=== PATIENT | female | born 1965 | race Hispanic/Latino ===

== ENCOUNTER 2017-06-13 20:29 | Emergency (ER) | payer BC, OTHER ==
[~2017-06-13 20:29] MED LIST: RANI300T4 PO
[2017-06-13] MEDS ORDERED: KETOROLAC TROMETHAMINE 30MG/ML ONE (22:16)
== END 2017-06-13 22:39 | disposition home or self-care (01) ==
LOC: EDH 20:29
DX: M54.5 Low back pain (principal); R51 Headache; E78.5 Hyperlipidemia, unspecified; Z90.710 Acquired absence of both cervix and uterus; W18.39XA Other fall on same level, initial encounter; Y93.89 Activity, other specified; Y92.89 Other specified places as the place of occurrence of the external cause; Y99.8 Other external cause status
CPT/HCPCS: 70450; 72220; 96372; 99284; J1885

== ENCOUNTER 2021-07-15 13:23 | Emergency (ER) | payer BC ==
[~2021-07-15] VITALS: Ht 154.9 cm; Wt 74.8 kg
[2021-07-15] MEDS ORDERED: KETOROLAC 60 MG VIAL (30MG/ML) IM ONE (16:30)
[2021-07-15] MEDS ORDERED: CYCLOBENZAPRINE HCL 10 MG TABLET PO ONE (16:30)
[2021-07-15] MEDS ORDERED: NAPR-1180 PO (17:21)
[2021-07-15] MEDS ORDERED: CYCL10TA16 PO (17:21)
[2021-07-15 17:36] VITALS: BP 144/88
== END 2021-07-15 17:37 | disposition home or self-care (01) ==
LOC: EDH 13:23
DX: S16.1XXA Strain of muscle, fascia and tendon at neck level, initial encounter (principal); S39.012A Strain of muscle, fascia and tendon of lower back, initial encounter; S09.90XA Unspecified injury of head, initial encounter; Z79.899 Other long term (current) drug therapy; W07.XXXA Fall from chair, initial encounter; Y93.89 Activity, other specified; Y92.89 Other specified places as the place of occurrence of the external cause; Y99.8 Other external cause status
CPT/HCPCS: 70450; 72125; 72131; J1885

== ENCOUNTER 2022-04-12 11:41 | Emergency (ER) | payer BC ==
[~2022-04-12] VITALS: Ht 154.9 cm; Wt 76.7 kg
[~2022-04-12 11:41] MED LIST changes: +CYCL10TA16 PO; +NAPR-1180 PO
[2022-04-12 12:11] LABS: BASOPHILS % (AUTO) 0.8 % (0.0-5.0); EOSINOPHILS % (AUTO) 2.9 % (0.0-8.0); HEMATOCRIT 38.3 % (36-48); LYMPHOCYTES % (AUTO) 37.9 % (21.0-51.0); MEAN CORPUSCULAR HEMOGLOBIN 30.2 pg (27.0-33.0); MEAN CORPUSCULAR HGB CONC 34.5 g/dL (32.0-36.0); MEAN CORPUSCULAR VOLUME 87.6 fL (79-99); MONOCYTES % (AUTO) 8.6 % (3.0-13.0); NEUTROPHILS % (AUTO) 49.1 % (40.0-77.0); PLATELET COUNT (AUTO) 147 K/uL (130-400); RED BLOOD CELL COUNT(AUTO) 4.37 MIL/uL (4.00-5.50); RED CELL DISTRIBUTION WIDTH 12.5 % (11.0-15.5); WHITE BLOOD COUNT (AUTO) 7.6 K/uL (4.8-10.8)
[2022-04-12 12:33] LABS: CREATININE 0.8 mg/dL (0.5-1.5); POTASSIUM 4.3 mmol/L (3.5-5.1)
[2022-04-12 12:37] LABS: ALBUMIN 4.2 g/dL (3.5-5.0); TOTAL PROTEIN, SERUM 7.3 g/dL (6.0-8.3)
[2022-04-12 12:40] LABS: APPEARANCE,URINE CLEAR (CLEAR); BILIRUBIN,URINE NEGATIVE (NEGATIVE); COLOR,URINE LIGHT-YELLOW (YELLOW); GLUCOSE, URINE (UA) NEGATIVE (NEGATIVE); KETONES,URINE NEGATIVE (NEGATIVE); LEUKOCYTE ESTERASE ,URINE NEGATIVE Leu/uL (NEGATIVE); NITRATE,URINE NEGATIVE (NEGATIVE); OCCULT BLOOD,URINE NEGATIVE (NEGATIVE); PROTEIN,URINE NEGATIVE (NEGATIVE); UROBILINOGEN,URINE 0.2 mg/dL (0.2-1.0)
[2022-04-12 15:24] VITALS: BP 116/45
== END 2022-04-12 15:24 | disposition home or self-care (01) ==
LOC: EDH 11:41
DX: R07.89 Other chest pain (principal); K21.9 Gastro-esophageal reflux disease without esophagitis; E78.00 Pure hypercholesterolemia, unspecified; E66.9 Obesity, unspecified; Z79.1 Long term (current) use of non-steroidal anti-inflammatories (NSAID); Z90.710 Acquired absence of both cervix and uterus; Z68.31 Body mass index [BMI] 31.0-31.9, adult
CPT/HCPCS: 36415; 71045; 80053; 81003; 84484; 85025; 93005

== ENCOUNTER → 2023-12-28 | Outpatient (CLI) | payer OTHER ==
[~2023-12-28] MED LIST changes: -CYCL10TA16 PO; +LEVO750T68 PO; -NAPR-1180 PO; -RANI300T4 PO
--- NOTE | 2023-12-28 15:47 | HMCIMG ---
CT CORONARY CALCIFICATION SCORING: Anatomic images were reviewed. The calcium score is being generated and reported separately. This report is for the visualized anatomy only. Visualized portions of the lungs are clear. Hilar and mediastinal structures appear normal. Osseous structures are unremarkable. Impression: 1. Negative noncardiac anatomic findings. 2. The calcium score is 1676.6 consistent with a large degree of calcified plaque. This is greater than 99th percentile for a patient this age. CT was performed with one or more following dose reduction techniques: automated exposure control, adjustment of the mA and kv according to patient's size, or use of a iterative reconstruction technique.
== END | disposition home or self-care (01) ==
LOC: RAH 14:35
PROVIDERS: ATTEND Internal Medicine Cardiovascular Disease
DX: Z13.6 Encounter for screening for cardiovascular disorders (principal); R06.09 Other forms of dyspnea; I20.9 Angina pectoris, unspecified; R93.1 Abnormal findings on diagnostic imaging of heart and coronary circulation
CPT/HCPCS: 75571

== ENCOUNTER → 2024-01-09 | Outpatient (CLI) | payer BC | END | disposition home or self-care (01) | LOC: SHCH 14:15 | PROVIDERS: ATTEND Internal Medicine Cardiovascular Disease | DX: R06.9 Unspecified abnormalities of breathing (principal); I20.9 Angina pectoris, unspecified | CPT/HCPCS: 93306; 93356 ==

== ENCOUNTER → 2024-03-20 | Outpatient (CLI) | payer BC ==
[~2024-03-20] MED LIST changes: +ASPI-1197 PO; +ATOR20TA65 PO; +FENO160T16 PO; +GABA-529 PO; -LEVO750T68 PO; +LINA72CA PO; +METO-408 PO; +OMEP40CA21 PO; +RANO500T6 PO
--- NOTE | 2024-03-20 15:42 | HMCIMG ---
Exam Type: CT HEAD/BRAIN W/O CONTRAST Clinical Information: Headache, Cerebrovascular disease, unspecified. Comparison: None CT Dose Index (CTDI): 57.33 mGy Dose Length Product (DLP): 956.79 total mGy-cm Findings: The examination is unremarkable. Hilliard-white matter junction is preserved. No intra or extra axial lesions or fluid collections are seen. Specifically, hilliard and white matter are normal in signal characteristics with normal caliber of ventricles and periventricular cisterns with no evidence of intra or or extra-axial hemorrhage, lacunar infarct, or major territorial infarct, mass, or other abnormality. There are no infarcts. There are no hemorrhages. Periventricular white matter locations are preserved. The orbital contents and structures of the posterior fossa are intact. Impression: Normal CT of the head. This study was performed using dose reduction techniques to include automated exposure control and/or adjustment of the mA and/or kV according to patient size.
== END | disposition home or self-care (01) ==
LOC: RAH 14:36
PROVIDERS: ATTEND Internal Medicine Cardiovascular Disease
DX: I67.9 Cerebrovascular disease, unspecified (principal); R51.9 Headache, unspecified
CPT/HCPCS: 70450

== ENCOUNTER → 2024-03-28 | Outpatient (CLI) | payer BC ==
[~2024-03-28] MED LIST changes: +PERFLUTREN PROTEIN-A MICROSPHR 0.22 MG/ML VIAL IV ONE
--- NOTE | 2024-03-31 13:11 | HMCSR ---
APPROVED REPORT EXAM: Two-dimensional and M-mode echocardiogram with Doppler and color Doppler. INDICATION ICD: I51.3 Contrast Details Indication: Rule out thrombus Agent/Amount Used: Optison 2mL 2D Dimensions RVDd3.1 cmLVEF(%)78.1 (>50%)LVED Vol(simp.)70.5 mL IVSd1.0 (0.7-1.1cm)FS(%)46 %LVES Vol(simp.)21.7 mL LVDd3.7 (3.8-5.6cm)LA (2D)2.8 (1.6-4.0cm)LVEF(%, simp.)69 % PWd1.4 (0.7-1.1cm)Ao Root(2D)2.4 (2.0-3.7cm)LA ESV INDEX (4CH)17.80 mL/m2 IVSs1.5 cmLVOT diam1.8 (1.8-2.4cm)LA ESV INDEX (2CH)23.70 mL/m2 LVDs2.0 (2.5-4.0cm)LA ESV INDEX (BP)18.70 mL/m2 PWs1.7 cm M-Mode Dimensions EPSS0.4 cm LA (MM)3.3 (1.6-4.0cm) Ao Root(MM)2.6 (2.0-3.7cm) Aortic Valve AoV VTI0.3 mAo Mean GR5.0 mmHgLVOT VTI0.22 m SHANT (VMAX)1.8 cm2AVA (VTI) 1.8 cm2 Mitral Valve MV E Vmax58.7 cm/sDECEL Wwxo518 ms MV A Vmax66.5 cm/sP 1/2 T119 ms E/A ratio0.9MVA (PHT)1.9 cm2 TDI E/E' Tufgze75.3E/E' Lateral7.2 Medial E' Peak V3.20 cm/sLateral E' Peak V8.20 cm/s Tricuspid Valve TR Vmax2.1 m/s TR Peak GR16.8 mmHg Left Ventricle Left ventricular cavity size is normal. Mid and distal anteroseptal dyskinesis Moderate hypokinesis o f mid and distal anterior wall and anterior apex There is normal left ventricular wall thickness. LVE F is 45%. Apical echodensity noted with Optison on injection at apex however significantly reduced in size compared to study dated February 13, 2024 Indeterminate diastolic dysfunction. Right Ventricle The right ventricle is normal size. The right ventricular systolic function is normal. Atria The left atrium size is normal. The right atrium size is normal. Aortic Valve The aortic valve is normal in structure and function. No aortic regurgitation is present. There is no aortic valvular stenosis. Mitral Valve The mitral valve is normal in structure and function. There is no mitral valve regurgitation noted. T here is no mitral valve stenosis. Tricuspid Valve The tricuspid valve is normal in structure and function. There is trivial tricuspid valve regurgitati on noted. Pulmonic Valve Pulmonic valve is not well visualized. There is no pulmonic valvular regurgitation. Great Vessels The aortic root is normal in size. The IVC is normal in size and collapses >50% with inspiration. Pericardium No pericardial effusion. Conclusion Mid and distal anteroseptal dyskinesis Moderate hypokinesis of mid and distal anterior wall and anterior apex Apical echodensity noted with Optison on injection at apex however significantly reduced in size comp ared to study dated February 13, 2024 LVEF is 45%.
== END | disposition home or self-care (01) ==
LOC: RAH 14:07
PROVIDERS: ATTEND Internal Medicine Cardiovascular Disease
DX: I07.1 Rheumatic tricuspid insufficiency (principal)
CPT/HCPCS: C8929; Q9956

== ENCOUNTER 2024-09-26 08:42 | Day surgery (SDC) | payer BC ==
[2024-09-26] VITALS (21 sets, daily range): BP systolic 104–142; BP diastolic 47–76; PULSE 42–72; RESP 12–18; TEMP 97.5–97.9
[~2024-09-26] VITALS: Ht 154.9 cm; Wt 68.3 kg
[~2024-09-26 08:42] MED LIST changes: +CYAN-52 PO; +DICY20TA3 PO; +EZET10TA48 PO; +FOLI1 PO; -GABA-529 PO; +HYDR28.32 TP; +ISOS30TA92 PO; +LOSA-417 PO; -METO-408 PO; -PERFLUTREN PROTEIN-A MICROSPHR 0.22 MG/ML VIAL IV ONE; -RANO500T6 PO; +RIVA20TA PO
[2024-09-26] MEDS ORDERED: LIDOCAINE HCL 400MG/20ML VIAL ONE (12:18)
[2024-09-26] MEDS ORDERED: IOHEXOL 350 MG/ML 100ML INFUS..BTL IV ONE (12:18)
[2024-09-26] MEDS ORDERED: NITROGLYCERIN 50MG VIAL ONE (12:19)
[2024-09-26] MEDS ORDERED: BIVALIRUDIN 250 MG/VIAL IV ONE (12:21)
[2024-09-26] MEDS ORDERED: MIDAZOLAM HCL 1 MG/ML 2ML VIAL ONE ×2 (12:46→12:49)
[2024-09-26] MEDS ORDERED: 0.9%NACL 1000ML 1,000 ML IV SCH (14:00)
[2024-09-26] MEDS ORDERED: GLUCAGON 1MG KIT 1 MG ML IM PRN (14:00)
[2024-09-26] MEDS ORDERED: DEXTROSE 50%-WATER 50 ML DISP.SYRIN IV PRN (14:00)
--- NOTE | 2024-09-26 14:08 | PRN ---
Procedure Note INDICATION FOR PROCEDURE: [] Chest pain Abnormal coronary CT angiogram PROCEDURE: [] Conscious sedation Selective coronary angiography Right common femoral arterial sheath placement six Filipino Omni wire pressure motion of ostial and proximal RCA lesions Intravascular ultrasound of RCA, lad, left main artery DATE OF PROCEDURE: September 26, 2024 PET CARE ASSOCIATE: Wilfredo Camarillo MD, F.A.C.C. PROCEDURE NOTE: [] Patient was brought to catheterization suite and prepped and draped in sterile fashion. An IV was started if not already in place in both groins were exposed from arterial access. 2% lidocaine was used for local anesthesia and then a micropuncture kit was used to gain access and once verified by dressing modified Seldinger technique was utilized to place a six Filipino sheath into the right common femoral artery. Next a six Filipino JR4 guide catheter with side holes then cannulated the right coronary artery and then a choice PT extra-support wire was placed in the distal ongoing RPL. Next intravascular ultrasound evaluation was performed of the proximal ostial RCA revealing only areas of stenosis at most albeit calcified of approximately 40-50%. Omni wire pressure measurement was also performed at 0.97 and 0.98. Guide catheter and wire were removed. Next a 3.0 XB catheter was then placed in the left coronary system and a choice PT extra-support wire was then placed into the mid LAD with contrast injections revealing occluded mid LAD with wire going up into what presumably was a NOGUERA anastomosis we could not get past the lesion. Next intravascular ultrasound was done of the proximal LAD and ostial proximal mid and distal left main. There was multiple measurements obtained revealing mean luminal area of greater than 6.5 millimeter squared in the left main artery and 7.9 millimeter squared. Once again it was noted that mid LAD was occluded. It was felt she would be terminated IMPRESSION: [] Occluded mid LAD Occluded graft x3 Moderate stenosis of left main artery and ostial proximal RCA PLAN: [] Aggressive medical management WILFREDO CAMARILLO MD Sep 26, 2024 14:08
[2024-09-26] MEDS ORDERED: ATROPINE 1MG SYG IVP ONE (15:35)
--- NOTE | 2024-09-26 15:38 | NUR ---
SHEATH PULLED AT THIS TIME VSS NAD RIGHT GROIN ASYMPTOMATIC
--- NOTE | 2024-09-26 15:53 | NUR ---
D-SAT WAS APPLIED TO RIGHT GROIN SITE MANUAL PRESSURE HELD X 15 MINUTES NAD VSS RIGHT FEMORAL SITE ASYMPTOMATIC.
--- NOTE | 2024-09-26 17:55 | NUR ---
BOTH PT AND SPOUSE GIVEN VERBAL AND WRITTEN DISCHARGE INSTRUCTIONS. IV REMOVED SITE ASYMPTOMATIC. RIGHT FEMORAL SITE ASYMPTOMATIC. DRESSING DRY INTACT. PT ASSESSED RIGHT GROIN PRIOR TO DISCHARGE WITH MYSELF. PT TAKEN OUT VIA WHEELCHAIR. SPOUSE DRIVING
== END 2024-09-26 18:05 | disposition home or self-care (01) ==
LOC: DAH 08:42
PROVIDERS: ATTEND Internal Medicine Cardiovascular Disease
DX: I25.119 Atherosclerotic heart disease of native coronary artery with unspecified angina pectoris (principal); D50.0 Iron deficiency anemia secondary to blood loss (chronic); I87.2 Venous insufficiency (chronic) (peripheral); E11.51 Type 2 diabetes mellitus with diabetic peripheral angiopathy without gangrene; R93.1 Abnormal findings on diagnostic imaging of heart and coronary circulation; I51.3 Intracardiac thrombosis, not elsewhere classified; E78.2 Mixed hyperlipidemia; E66.9 Obesity, unspecified; Z90.710 Acquired absence of both cervix and uterus; Z95.1 Presence of aortocoronary bypass graft; Z90.5 Acquired absence of kidney; Z90.722 Acquired absence of ovaries, bilateral; Z88.8 Allergy status to other drugs, medicaments and biological substances; Z68.30 Body mass index [BMI] 30.0-30.9, adult; Z79.01 Long term (current) use of anticoagulants; Z79.82 Long term (current) use of aspirin; Z79.899 Other long term (current) drug therapy
CPT/HCPCS: 93454; 92978; 92979 ×2; 93571; 87426; 99156; 99157 ×3; C1769 ×2; C1887 ×2; C1894 ×2; C1753; J3010; J3490 ×2; J2250 ×2; J0583; Q9967; A4215; A6402; A4222; A4221; A4663; A4216; A4606; Q9965 ×2; A4223 ×3; 96360; 96361; J0461

== ENCOUNTER 2025-02-08 12:49 | Emergency (ER) | payer BC ==
[~2025-02-08] VITALS: Ht 154.9 cm; Wt 70.3 kg
[~2025-02-08 12:49] MED LIST changes: +CARV3.12 PO; -EZET10TA48 PO; +EZET10TA80 PO; +FERR324T23 PO; +LEVO-70 PO; -LOSA-417 PO; -RIVA20TA PO
--- NOTE | 2025-02-08 13:21 | ERN ---
ED Note History of Present Illness Stated Complaint: HEMORRHOID SX Chief Complaint: Hemorrhoids Time Seen by MD: 12:58 Dictation: PATIENT IS A 59-YEAR-OLD FEMALE HERE WITH COMPLAINTS OF HEMORRHOID ECTOPY PAIN STATUS POST HEMORRHOIDECTOMY ON 01/29 AT [facility] AT A [facility] IN [facility]. HER SURGEON WAS , SHE HAS BEEN TAKING THE STOOL SOFTENERS PRESCRIBED WITH TYLENOL SINCE [place] AND WAS TOLD THAT SHE COULD NOT GET ANYMORE UNTIL SEEN BY THE DOCTOR. Allergies: Coded Allergies: heparin (Unverified Allergy, Intermediate, 08/05/24) Home Meds Active Scripts Ferrous Gluconate (Ferrous Gluconate) 324 Mg (37.5 Mg Iron) Tablet, 1 TAB PO DAILY for iron for 30 Days, #30 TAB 0 Refills Prov:JOE TREJO MD 11/13/24 Carvedilol (Carvedilol) 3.125 Mg Tablet, 1 TAB PO BID for 30 Days, #60 TAB 0 Refills Prov:JOE TREJO MD 11/13/24 Levofloxacin (Levofloxacin) 500 Mg Tablet, 1 TAB PO DAILY for 5 Days, #5 TAB 0 Refills Prov:JOE TREJO MD 11/13/24 Folic Acid (Folvite) 1 Mg Tab, 1 MG PO DAILY for 30 Days, #30 TAB 1 Refill Prov:BENNETT LYNN MD 08/12/24 Cyanocobalamin (Vitamin B-12) (Vitamin B-12) 1,000 Mcg Tablet, 1000 MCG PO DAILY for 30 Days, #30 TAB 1 Refill Prov:BENNETT LYNN MD 08/12/24 Reported Medications Isosorbide Mononitrate (Isosorbide Mononitrate ER) 30 Mg Tab.er.24h, 15 MG PO PM, TAB 09/19/24 Hydrocortisone (Hydrocortisone 1% 28.35GM) 1 % Crm, 1 APPL TP AD, APPL 09/19/24 Dicyclomine HCl (Dicyclomine HCl) 20 Mg Tablet, 20 MG PO AD, TAB 09/19/24 Aspirin (Aspirin) 81 Mg Tab.chew, 81 MG PO AM, TAB.CHEW 09/19/24 Ezetimibe (Ezetimibe) 10 Mg Tablet, 1 TAB PO DAILY for 30 Days, #30 TAB 0 Refills 08/05/24 Linaclotide (Linzess) 72 Mcg Capsule, 1 CAP PO DAILY 01/28/24 Fenofibrate (Fenofibrate) 160 Mg Tablet, 1 TAB PO DAILY 01/28/24 Atorvastatin Calcium (Atorvastatin Calcium) 20 Mg Tablet, 1 TAB PO HS for cholesterol 01/28/24 Omeprazole (Omeprazole) 40 Mg Capsule.dr, 1 CAP PO DAILY 01/28/24 Past Medical History Past Medical History: Anemia, High Cholesterol, Hypertension Additional Past Medical Hx: HEMORRHOIDS Surgical History: CABG Surgical History Other: HEMORRHOID SX Family History: Negative Social History: Negative History: Not Applicable RN Note Reviewed/Agreed w/PFSH: Yes Review of System Dictation CONSTITUTIONAL: Negative except for HPI HEAD/FACE: Negative except for HPI EENT: Negative except for HPI RESPIRATORY: Negative except for HPI GASTROINTESTINAL/ABDOMINAL: Negative except for HPI hemorrhoid pain GENITOURINARY: Negative except for HPI MUSCULOSKELETAL: Negative except for HPI INTEGUMENTARY: Negative except for HPI NEUROLOGICAL/PSYCH: Negative except for HPI HEMATOLOGIC/LYMPHATIC: Negative except for HPI All Systems Negative, Except as noted above. 13 point review of systems assessed and all negative except for above. Initial Vital Sign VS Vital Signs Date Time Temp Pulse Resp B/P (MAP) Pulse Ox O2 Delivery O2 Flow Rate FiO2 02/08/25 12:50 98.2 78 20 141/78 99 02/08/25 13:33 Room Air* 0 21 Physical Exam Dictation Vital Signs reviewed ed RN in room with the exam General Appearance: Alert, oriented x 3, moderate acute distress, well developed, nourished. Head and Face: non-traumatic. Eyes: PERRL, pink conjunctivas, eyelid no trauma, anterior chamber with arcus senilis. Ears: Pinnas intact and no signs of trauma or erythema ear canals clear and no discharge TM no erythema Nose: No discharge, no bleeding. Oropharynx: Mouth normal, tongue pink, pharynx clear,no erythema, tonsils no exudates, no abscesses noted, mucous membrane moist Neck: Supple, non-tender, no thyromegaly, no masses, no JVD, no bruits Breast:Deferred Chest:No tenderness, no crepitus, no paradoxical movement, no retractions Lungs:Clear, well-ventilated, symmetric, no rales, no wheezing, no rhonchi, no stridor, good breath sounds bilaterally Heart: Regular rate, regular rhythm, no murmur, no gallops Vascular: no peripheral edema, Abdomen: Soft, positive bowel sounds, nondistended, no guarding, nontender, no rebound, no masses no hepatomegaly, no splenomegaly, no Matias's sign, no hernias. Rectal: Large external hemorrhoid, non thrombosed. Tone is normal. Scant bleeding. Genital: Deferred Neurological: Normal speech, motor function intact, sensory function intact Musculoskeletal: Neck nontender, full range of motion, back nontender, full range of motion, Extremities: nontender, full range of motion Skin: Color pink, dry, no turgor, no rash, no lacerations, no abrasions, no contusions. Lymphatic: Deferred Results (Laboratory/Radiology) Laboratory/Radiology Laboratory Tests Test 02/08/25 13:38 White Blood Count 8.7 K/uL (4.8-10.8) Red Blood Count 4.83 MIL/uL (4.00-5.50) Hemoglobin 13.9 g/dL (12.0-16.0) Hematocrit 41.7 % (36-48) Mean Corpuscular Volume 86.3 fL (79-99) Mean Corpuscular Hemoglobin 28.8 pg (27.0-33.0) Mean Corpuscular Hemoglobin Concent 33.3 g/dL (32.0-36.0) Red Cell Distribution Width 20.4 % (11.0-15.5) H Platelet Count 188 K/uL (130-400) Mean Platelet Volume fL (7.5-10.5) Immature Granulocyte % (Auto) 0.6 % (0-1) Neutrophils (%) (Auto) 65.3 % (40.0-77.0) Lymphocytes (%) (Auto) 23.8 % (21.0-51.0) Monocytes (%) (Auto) 7.7 % (3.0-13.0) Eosinophils (%) (Auto) 2.0 % (0.0-8.0) Basophils (%) (Auto) 0.6 % (0.0-5.0) Neutrophils # (Auto) 5.7 K/uL (1.8-7.7) Lymphocytes # (Auto) 2.1 K/uL (1.0-4.8) Monocytes # (Auto) 0.7 K/uL (0.1-1.0) Eosinophils # (Auto) 0.17 K/uL (0.00-0.70) Basophils # (Auto) 0.05 K/uL (0.00-0.20) Absolute Immature Granulocyte (auto 0.05 K/uL (0-1) Nucleated Red Blood Cells 0.0 % (0.0-0.19) Red Blood Cell Morphology See comments Sodium Level 138 mmol/L (136-145) Potassium Level 4.0 mmol/L (3.5-5.1) Chloride Level 105 mmol/L (101-111) Carbon Dioxide Level 24 mmol/L (21-32) Blood Urea Nitrogen 30 mg/dL (7-18) H Creatinine 1.0 mg/dL (0.5-1.0) Glomerular Filtration Rate Calc 64 mL/min (>90) Random Glucose 119 mg/dL (70-105) H Total Calcium 9.3 mg/dL (8.5-10.1) Labs Reviewed?: Yes ED Course ED Course Orders Procedure Category Date Status Time Hydrocodone/Apap PHA 02/08/25 Complete 5/325 ([place] 5/325mg) 13:30 Ketorolac 60mg/2ml PHA 02/08/25 Complete (Toradol 60mg/2ml) 13:30 Cbc With Differential LAB 02/08/25 Complete 13:19 Basic Metabolic Panel LAB 02/08/25 Complete 13:19 Ondansetron 4mg Inj PHA 02/08/25 Complete (Zofran 4mg Inj) 14:00 Morphine 4mg Syg PHA 02/08/25 Complete (Morphine 4mg Syg) 14:00 Current Medications Medications (Trade) Dose Ordered Sig/Td Route PRN Reason Start Time Stop Time Status Last Admin Dose Admin Acetaminophen/ Hydrocodone Bitart (NORco 5/325MG) 1 tab ONCE ONCE PO 02/08/25 13:30 02/08/25 13:31 DC 02/08/25 13:50 Ketorolac Tromethamine (toRADol 60MG/ 2ML) 60 mg ONCE ONCE IM 02/08/25 13:30 02/08/25 13:31 DC 02/08/25 13:49 Morphine Sulfate (morPHINE 4MG SYG) 4 mg ONCE ONCE IVP 02/08/25 14:00 02/08/25 13:47 DC Ondansetron HCl (zoFRAN 4MG INJ) 4 mg ONCE ONCE IVP 02/08/25 14:00 02/08/25 13:47 DC Vital Signs Date Time Temp Pulse Resp B/P (MAP) Pulse Ox O2 Delivery O2 Flow Rate FiO2 02/08/25 13:33 98.8 70 22 133/78 99 Room Air* 0 21 02/08/25 12:50 98.2 78 20 141/78 99 1450/labs unremarkable patient will be discharged home with external hemorrhoid and postsurgical pain. She will be placed on Metamucil 1 tsp twice a day with 8 oz water. Tylenol with codeine for severe pain Call [facility] on Sunday for follow up with her colorectal surgeon. Medical Decision Making MDM MDM: Differential diagnosis: Thrombosed hemorrhoid/postsurgical pain/electrolyte imbalance/dehydration/anemia Rationale: Tests considered and ordered secondary to shared decision making include: Labs Previous outside records reviewed: Old ER visits. Risk of complication and/or morbidity or mortality of patient management: None Medications-Per medication reconciliation Need for hospitalization: Patient does not meet criteria for hospitalization. None Need for emergency major/minor surgery: No There are no social concerns with this patient. Prescription drug management Metamucil/hydrocortisone suppositories/Tylenol with codeine Prescriptions will include symptomatic care Patient's prior external medical records from other ER visits were reviewed by me as indicated. Prior testing and results from previous visits were reviewed. Prior tests were taken into account with medical decision making and resource utilization, independent historian/historians were used to obtain complete medical history. I independently interpreted the test that were performed, results were reviewed by me and considered findings on radiology if ordered. Medical management and examination interpretation discussions were had by me with other qualified healthcare professionals as indicated for the patient's care. DX & DISP Disposition: Discharge Departure Impression: Primary Impression: External hemorrhoid Additional Impressions: Pain at surgical site, Dehydration, Hyperglycemia, Status post hemorrhoidectomy Condition: Stable Scripts Psyllium Husk (with Sugar) (Metamucil Powder) 3.4 Gram/12 Gram Powder 5 ML PO BID, #150 GM 0 Refills Prov: CHARLINE VARGAS COPIER FIELD SERVICE TECHNICIAN 02/08/25 Hydrocortisone Acetate (Hydrocortisone Acetate) 25 Mg Supp.rect 1 SUPP NE BID for 14 Days, #28 SUPP 0 Refills Prov: CHARLINE VARGAS COPIER FIELD SERVICE TECHNICIAN 02/08/25 Acetaminophen with Codeine (Acetaminophen-Cod #3 Tablet) 300 Mg-30 Mg Tablet 1 TAB PO Q4H PRN for Moderate to severe pain, #15 TAB 0 Refills Prov: SAMCHARLINE FOLEYP 02/08/25 Additional Instructions: Follow-up with primary care provider in 1 to 2 days. Take medications as directed here in the emergency room. Okay to continue home medications unless otherwise discussed during your visit in the emergency room today. Return to your nearest emergency room if symptoms worsen or if there is no improvement. Call 911 if you need immediate assistance. Take Tylenol or Motrin [id number] as needed and if no contraindications are present. Increase oral hydration. A wound culture or urine culture was ordered here in the emergency room department please follow-up with primary care provider and advise them to get repeat ports from our facility. If you had any Alex wrap/splints that were applied here, please do not remove them until you see your primary care or specialty. Take Tylenol with codeine as directed for severe pain. Use hydrocortisone suppositories twice a day as directed for the next 14 days. Metamucil twice a day as directed with 8 oz of water for the next 10 days. Call [facility] on Sunday for appointment with the your colorectal surgeon. Referrals: YAIR BORDEN MD (PCP) Time of Disposition: 14:52 I have reviewed the case, and I agree with, Diagnosis and Plan CHARLINE VARGAS Feb 08, 2025 13:21
[2025-02-08] MEDS: HYDROcodone/APAP 5/325 1 TAB TABLET PO ONE (13:50)
[2025-02-08 13:53] LABS: IMMATURE GRANULOCYTE ABSOLUTE 0.05 K/uL (0-1); NUCLEATED RED BLOOD CELLS 0.0 % (0.0-0.19); PLATELET COUNT (AUTO) 188 K/uL (130-400); RED BLOOD CELL COUNT(AUTO) 4.83 MIL/uL (4.00-5.50); RED CELL DISTRIBUTION WIDTH 20.4 % (11.0-15.5); WHITE BLOOD COUNT (AUTO) 8.7 K/uL (4.8-10.8)
[2025-02-08 14:09] LABS: CREATININE 1.0 mg/dL (0.5-1.0); GLOMERULAR FILTR. RATE CALC 64.0 mL/min (>90); GLUCOSE,RANDOM 119.0 mg/dL (70-105); SODIUM SERUM 138.0 mmol/L (136-145); UREA NITROGEN, BLOOD 30.0 mg/dL (7-18)
[2025-02-08] MEDS ORDERED: HYDR25SU7 PR (14:54)
[2025-02-08] MEDS ORDERED: PSYL575P22 PO (14:54)
[2025-02-08] MEDS ORDERED: ACET-2079 PO (14:54)
[2025-02-08 15:00] VITALS: BP 134/76; PULSE 72; RESP 19; TEMP 98.8; O2SAT 100
== END 2025-02-08 15:08 | disposition home or self-care (01) ==
LOC: EDH 12:49
DX: K64.4 Residual hemorrhoidal skin tags (principal); G89.18 Other acute postprocedural pain; K62.89 Other specified diseases of anus and rectum; E86.0 Dehydration; R73.9 Hyperglycemia, unspecified; I10 Essential (primary) hypertension; E78.00 Pure hypercholesterolemia, unspecified; Z88.8 Allergy status to other drugs, medicaments and biological substances; Z79.899 Other long term (current) drug therapy; Z95.1 Presence of aortocoronary bypass graft; Z87.19 Personal history of other diseases of the digestive system
CPT/HCPCS: 99283; 80048; 85025; 36415; 96372; J1885